=== PATIENT | female | born 1960 | race Caucasian/White ===

== ENCOUNTER 2016-10-15 12:01 | Emergency (ER) | payer MEDICAID ==
[~2016-10-15] VITALS: Ht 165.1 cm; Wt 80.7 kg
[~2016-10-15 12:01] MED LIST: ACETAMINOPHEN500 M3 PO; ALBUTEROL2 PUFFS/17 IN; ASPIRIN 81MG TA81 MG PO; ATORVASTATIN 8080 MG PO; ELAVIL GENERIC25 MG PO; FLEXERIL10 MG PO; FLONASE 50 MCG16 GM; FUROSEMIDE80 MG PO; GABAPENTIN300 MG PO; KLOR-CON M2020 MEQ PO; LEVOTHYROXINE0.05 MG PO; MAXZIDE 25 MG-31 TA1 PO; MEDROL 4MG. DOSE4 MG PO; METFORMIN HCL1000 MG PO; METOPROLOL25 MG PO; MONODOX100 MG PO; NEXIUM40 MG PO; OMEPRAZOLE40 MG PO; OXYCODONE CR10 MG PO; OXYGEN IH; Oxycodone5 MG PO; PAMELOR25 MG PO; SYMBICORT1 AER IH; VENTOLIN H0.09 MG/AC IH; VERAPAMIL120 MG PO; XANAX1 MG PO; ZANTAC 150150 MG PO; [UNRECOGNIZED DRUG - OTHER] PO
[2016-10-15 12:10] LABS: HEMOGLOBIN 11.8 g/dL (12.2-16.2); LYMPH # 3.4 K/mm3 (0.7-4.5); LYMPH % 29.1 % (10-50.0)
[2016-10-15 12:24] LABS: URINE BILIRUBIN - DIPSTICK NEGATIVE (NEG); URINE BLOOD NEGATIVE (NEG)
--- NOTE | 2016-10-15 12:29 | Emergency Room Report ---
History of Present Illness Time Seen by [id number] Presenting Problem in Triage Pt arrived:Stretcher Presenting Problem:RAPID RESPONSE WAS CALLED TO MRI, PER STAFF REPORT PT HAD JUST COMPLETED MRI BRAIN WITH CONTRAST THAT WAS ORDERED PER PT PCP. PER REPORT PT IV HAD BEEN REMOVED PT SAT UP ON SIDE OF MRI TABLE, PT REPORTED FEELING VERY DIZZY, PT WAS LAID BACK DOWN PER STAFF, STAFF REPORTS PT BECAME UNRESPONSIVE AT THAT TIME. PT IS AWAKE AND AROUNSABLE BUT LETHARGIC IN NATURE AT THIS TIME. PT REPORTS THAT PT WAS RECIEVING MRI TODAY R/T RECENT HX OF FALLS AND PT BEING TIRED AND FALLING ASLEEP WHILE TALKING PER REPORT. Onset of symptoms date/time:10/15/16 or onset unknown for: Treatment Prior to Arrival: SENIOR ADMINISTRATIVE SUPPORT Provided by: Sepsis Risk Assessment: Temp: B/P: 97/52 MAP: 67 Pulse: 68 Resp: 20 Recent fever? N Clinical Suspician of Infection? N Mental Status: 2 - Mildly Altered Sepsis Risk:Low Sepsis Risk Have you (or family members/close friends) recently traveled outside the [place]? N If Yes, where/when: Have you had exposure to infectious disease within the past month? N TB? Other? Specify: Patient was in MRI and a history of passing out and falls and hitting the head and face several days ago per the and was getting an MRI of the brain for evaluation of that and finished the MRI with contrast and then sat up and complained of lightheadedness and passed out and was not responsive upon arrival to the emergency room they stated they were having trouble getting a blood pressure initially and her initial blood pressure was 97 the patient was arousable C denied any pain denied headache chest pain or abdominal pain since she had lightheadedness and weakness and denied other complaints she states she has had low back pain but that has been a chronic complaint per the patient as well as her . There were no falls in the MRI the last fall was several days ago per the Comment 108pm sbp 115, pt complains only of chronic back pain, same as she usually has 1257 bp to 87, 2nd liter bolus has been ordered, levaquin iv added. 402pm this got off the phone with Dr. Rosario he states he MRI of the head has no acute disease the CT abdomen has no acute disease and he states the CT C- spine no acute fracture noted injury. He states the chest x-ray looks like a LEFT lower lobe pneumonia and that there was some edema present. I discussed with the he states the patient has been coughing up some yellow phlegm he recently. She has some acute kidney injury renal insufficiency with some interstitial edema as well as pneumonia we don't have renal here in staff tells me when E to transfer the patient, [facility] pt is sitting up in bed drinking. preeti Stahl MD he accepts [facility] telemetry. preeti him initial a fib appearance, then nsr, now looks like junctional. Electrocardiogram read by myself shows a rate of 61, junctional rhythm, normal axis, no QT prolongation, nonspecific electrocardiogram ALLERGIES Coded Allergies: Penicillins (I-HIVES 10/05/16) bupropion (UNKNOWN 10/05/16) fexofenadine (From TAD) (UNKNOWN 10/05/16) ibuprofen (From ADVIL) (I-HIVES 10/05/16) naproxen (From ALEVE) (UNKNOWN 10/05/16) valsartan (From DIOVAN) (UNKNOWN 10/05/16) varenicline (From CHANTIX) (UNKNOWN 10/05/16) Home Medications Reported Medications Alprazolam (Xanax) 1 MG PO TID Verapamil Hcl (Verapamil ER) 120 MG PO BID Metoprolol Tartrate (Metoprolol) 25 MG PO BID Potassium Chloride (Klor-Con M20) 20 MEQ PO DAILY Citalopram Hydrobromide (Citalopram HBr) 20 MG PO DAILY #30 Cyclobenzaprine Hcl (Flexeril) 5 MG PO BID Acetaminophen (Acetaminophen Extra Strength) 650 MG PO PRN PRN PAIN OXYCODONE HCL (Oxycodone) 15 MG PO Q6H ALBUTEROL (Ventolin Hfa) 2 PUFF IH Q6HP PRN SHORTNESS OF BREATH METFORMIN HCL (Metformin 1000MG) 1,000 MG PO BID Omeprazole (Omeprazole 40MG) 40 MG PO DAILY Atorvastatin Calcium (Atorvastatin 80MG) 80 MG PO QHS Levothyroxine Sodium (Levothyroxine) 0.05 MG PO DAILY Fluticasone Propionate (Flonase 50 Mcg Nasal [place]) 2 SPRAY NA DAILY Gabapentin (Gabapentin 300MG) 300 MG PO QHS ASPIRIN (Aspirin) 81 MG PO DAILY Device (Oxygen (Concentrator)) 1 LITER IH CONSTANT #3 History Medical History General CAD? No Angina: Yes IA: No Hypertension? Yes Hyperlipidemia? Yes CHF? No DVT? No PE? No COPD? Yes Asthma? Yes Anemia? No GERD? Yes Gastric ulcers? No GI Bleed? No Hernia? Yes Thyroid Problems? Yes Hypothyroidism? Yes CVA? No Seizures? No Diabetes? Yes Insulin Dependent: No Insulin Pump: No Home FSBS? Yes Renal Insuffiency? No End Stage Renal Disease? No UTI? No Stones? No BPH? No GB Disease: Yes Nephritic Syndrome? No Asplenia? No Hepatitis? No Sickle Cell Disease? No Arthritis? Yes Migraines? No Cataracts? No Glaucoma? No MRSA? No HIV? No TB? No Anxiety? Yes Depression? No Cancer? No More? 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 Hx LMP N/A Family History Family Hx Diabetes Yes CAD Yes Hypertension No Hyperlipidemia No Cancer Yes TB No Social History Smoking Hx Smoker: Current Every Day Smoker Tobacco: Yes Type Cigarettes Packs/day < 1 Pack Alcohol Alcohol: No Review of Systems All Other Systems Reviewed and Negative Physical Exam Vital Signs Vital Signs Date Time Temp Pulse Resp B/P Pulse O2 O2 Flow FiO2 Ox Delivery Rate 10/15 1729 98.1 60 18 92/53 95 3 10/15 1710 60 18 92/53 91 3 10/15 1606 61 16 120/80 91 3 10/15 1524 57 16 107/59 87 3 10/15 1356 61 20 98/63 95 3 10/15 1330 61 20 93/52 97 3 10/15 1308 63 20 115/62 97 3 10/15 1243 68 20 94/65 95 3 10/15 1201 99.0 68 20 97/52 92 3 General Appearance: Nontoxic fatigued Head: Normocephalic, has some bilateral facial contusion Eyes: conjunctiva/corneas clear ENT: Mucous membranes moist. Neck: No jugular venous distention. C-spine she states she has some C-spine tenderness Cardiac: regular rate and rhythm Lungs: Clear to auscultation bilaterally Abdomen: Epigastric tenderness, Nondistended, positive bowel sounds, no rebound : No CVA tenderness Extremities: no edema Musculoskeletal: No chest wall tenderness Skin: No rashes or lesions to exposed skin. Neurologic: Alert and oriented x2 "2016" Cranial nerves intact Strength 4 out of 5 equal symmetric in arms and legs no focal deficits in strength, Sensation intact to light touch Psychiatric: Normal affect (Blank SMITH, Konstantin) General Appearance normal appearance Respiratory Status No: respiratory distress. Cardiovascular no JVD Neurologic alert Medical Decision Making LABS/Meds/Orders Pt receiving controlled substance in ED? No Comment 335pm awaiting MRI head read. awaiting CT reads Results/Orders Laboratory Tests 10/15/16 1708: POC Glucose 128 H 10/15/16 1700: Lactic Acid 8.6 H 10/15/16 1340: ABG pH 7.17 *L, ABG pCO2 (Temp Corrct 30.5 L, ABG pO2 (Temp Correct 50.4 L, ABG HCO3 10.8 L, ABG Total CO2 11.7 L, ABG O2 Sat (Calculated) 75.0 *L, ABG Base Excess -17.8 L, Jorge Test ACCEPTABLE, Blood Gas Comments LEFT RADIAL 10/15/16 1245: Lactic Acid 6.8 H 10/15/16 1215: Urine Color YELLOW, Urine Appearance CLEAR, Urine pH 6.0, Ur Specific [place] >= 1.030, Urine Protein 2+ H, Urine Ketones NEGATIVE, Urine Blood NEGATIVE, Urine Nitrate NEGATIVE, Urine Bilirubin NEGATIVE, Urine Urobilinogen 0.2, Ur Leukocyte Esterase NEGATIVE, Urine WBC OCC, Urine Renal Cells 3-5, Urine Bacteria 4+, Urine Mucus OCC, Urine Glucose NEGATIVE 10/15/16 1205: Lipase 105 10/15/16 1205: B-Natriuretic Peptide 1190 H 10/15/16 1205: Sodium 139, Potassium 5.8 H, Chloride 107, Carbon Dioxide 16 L, BUN 14, Creatinine 1.5 H, Estimated Creat Clear 54, Estimated GFR (MDRD) 36 L, Glucose 137 H, Calcium 7.8 L, Total Bilirubin 0.6, AST 60 H, ALT 65, Alkaline Phosphatase 107, Creatine Kinase 54, CK-MB (CK-2) Rel Index 4.4 H, CK and CKMB Interp 2.4, Troponin I 0.06, Total Protein 6.2 L, Albumin 2.8 L, Globulin 3.4 H, Albumin/Globulin Ratio 0.8 L, PT 14.5 H, INR 1.36 H, APTT 31.1, WBC 11.7 H, RBC 4.72, Hgb 11.8 L, Hct 43.3, MCV 91.7, RDW 17.0, Plt Count 336, MPV 7.1 L, Gran % 65.9, Gran # 7.7, Lymphocytes % 29.1, Monocytes % 3.3, Eosinophils % 1.0, Basophils % 0.7, Lymphocytes # 3.4, Monocytes # 0.4, Eosinophils # 0.1, Basophils # 0.1, PUBS MCHC 27.3 L, MCH 25.0 L Orders Procedure Date/time Status DIET-NOTHING BY MOUTH 10/15 D Active FINGERSTICK BLOOD SUGAR 10/15 1708 Complete [id number] BY SAME 10/15 1620 Active ELECTROCARDIOGRAM REQUEST 10/15 1615 Active ARTERIAL BLOOD GAS REQUEST 10/15 1540 Active [id number] BY SAME 10/15 1400 Active BRAIN NATRIURETIC PEPTIDE 10/15 1353 Complete LACTIC ACID FOLLOW UP 10/15 1321 Complete ELECTROCARDIOGRAM REQUEST 10/[address] SCAN REQUEST 10/15 1234 Complete ARTERIAL BLOOD GAS REQUEST 10/15 1230 Active LIPASE 10/15 1229 Complete LACTIC ACID 10/15 1229 Complete URINARY CATHETER INSERT 10/15 1226 Active PARTIAL THROMBOPLASTIN TIME 10/15 1223 Complete PROTHROMBIN TIME 10/[address] ABD REQUEST 10/[address] SCAN REQUEST 10/15 1222 Complete CULTURE, BLOOD 10/15 1222 Complete URINALYSIS/COMPLETE 10/15 1217 Complete 12 LEAD EKG-BESSON (INITIAL) 10/15 1215 Active CULTURE, URINE 10/15 1215 Complete ELECTROCARDIOGRAM REQUEST 10/15 1202 Active IV SALINE LOCK 10/15 1202 Active PACKAGING TECHNICIAN 10/15 1202 Active CBC WITH AUTO DIFF 10/15 1202 Complete CARDIAC ENZYMES 10/15 1202 Complete CHEM 12 PROFILE 10/15 1202 Complete Electrocardiogram read by myself shows a rate of 71, a fib rhythm, normal axis, no QT prolongation, nonspecific electrocardiogram (Blank SMITH, Konstantin) XRAY/CT/US XRAY/CT/US XRAY chest XR interpretation by reviewed by me Xray Results lll infiltrate Departure Departure Time of Disposition 1604 Disposition DC/XFER from [facility] to [facility] Clinical Impression Primary Impression: Pneumonia Qualifiers: Pneumonia type: due to unspecified organism Laterality: left Lung location: lower lobe of lung Qualified Code: J18.9 - Pneumonia, unspecified organism Secondary Impressions: WENDIE (acute kidney injury) Hyperkalemia Hypotension Qualifiers: Hypotension type: unspecified hypotension type Qualified Code: I95.9 - Hypotension, unspecified Condition STABLE Referrals Zeeshan Alfonso MD (Family) ED Critical Care Critical Care Yes Time spent 75-104 min Vital system(s) involved: Circulatory Failure, Central Nervous System, Renal Failure I was present at bedside for Coordinating pt's care, Interpreting EKGs/Strips , During my initial exam, Reviewing lab results, Reviewing old records, Discussing pt condition, For re-examinations, Examining radiographs If Critical Care minutes are documented, the time involved in the performance of seperately reportable procedures was not counted toward critical care time documented. I directly delivered medical care to this critically ill and/or injured patient. Timely evaluation and treatment was necessary to address the significant organ system(s) dysfunction present in this patient. Electrocardiogram read by myself shows a rate of 71, a fib rhythm, normal axis, no QT prolongation, nonspecific electrocardiogram (Konstantin Parson MD) XRAY/CT/US XRAY/CT/US XRAY chest XR interpretation by reviewed by me Xray Results lll infiltrate Departure Departure Time of Disposition 1604 Disposition DC/XFER from ER to [facility] Clinical Impression Primary Impression: Pneumonia Qualifiers: Pneumonia type: due to unspecified organism Laterality: left Lung location: lower lobe of lung Qualified Code: J18.9 - Pneumonia, unspecified organism Secondary Impressions: WENDIE (acute kidney injury) Hyperkalemia Hypotension Qualifiers: Hypotension type: unspecified hypotension type Qualified Code: I95.9 - Hypotension, unspecified Condition STABLE Referrals Zeeshan Alfonso MD (Family) ED Critical Care Critical Care Yes Time spent 75-104 min Vital system(s) involved: Circulatory Failure, Central Nervous System, Renal Failure I was present at bedside for Coordinating pt's care, Interpreting EKGs/Strips , During my initial exam, Reviewing lab results, Reviewing old records, Discussing pt condition, For re-examinations, Examining radiographs If Critical Care minutes are documented, the time involved in the performance of seperately reportable procedures was not counted toward critical care time documented. I directly delivered medical care to this critically ill and/or injured patient. Timely evaluation and treatment was necessary to address the significant organ system(s) dysfunction present in this patient.
[2016-10-15] MEDS ORDERED: CITALOPRAM HYDR20 MG PO (12:40)
[2016-10-15 13:59] LABS: ALLEN'S TEST ACCEPTABLE; ARTERIAL ABE -17.8 MMOL/L (-2.4-+2.3); ARTERIAL PO2 50.4 MMHG (80-100); ARTERIAL TCO2 11.7 MMOL/L (23-27); OXYGEN 5 LPM NC
--- NOTE | 2016-10-15 15:41 | RADIOLOGY REPORT PS360 ---
CHEST-PORTABLE ORDERING PHYSICIAN : Konstantin Parson MD PATIENT AGE: 55 years GENDER: Female INDICATION: syncope TECHNIQUE: AP portable upright chest CT chest COMPARISON: 11/25/2015 FINDINGS AP portable upright chest. The patient has abundant chronic changes as seen on previous November 2015 CT chest & plain film chest October 2016. . Less optimal inspiration today accentuates markings. Particularly towards bases. However today there is is a left lower lobe infiltrate superimposed upon chronic changes. Air bronchograms most evident towards left lung base. Partially obscure the left heart border but not the left hemidiaphragm. Mild cardiomegaly. Generous with superior mediastinum, with probably progression of right paratracheal lymph nodes further supported by today CT neck which includes the upper most chest and shows a additional prominence of right paratracheal lymph node As evident on today's chest film IMPRESSION: ------- Left Lower lobe pneumonia -superimposed on chronic changes . Prominent chronic changes Suboptimal inspiration further accentuates lung markings at bases is well Coronary megaly. Additional fullness right paratracheal region suspect for progressive right paratracheal adenopathy-as further confirm a subsequent CT C-spine from today
--- NOTE | 2016-10-15 16:20 | RADIOLOGY REPORT PS360 ---
CT SINUS (MAX-FACIAL W/O CONT) ORDERING PHYSICIAN : Konstantin Parson MD PATIENT AGE: 55 years GENDER: Female INDICATION: FALL, FACIAL CONTUSION TECHNIQUE: Helical CT scanning performed the facial bones and sinuses with multiplanar reconstructions on CT workstation. COMPARISON: CT head 10/05/2016 previous MR I C-spine 06/25/2016 FINDINGS No acute fracture involving the facial bones. The orbits intact. Paranasal sinuses are well-developed and clear. The ostiomeatal complex and pathway is patent bilaterally. The frontal sinus, ethmoid air cells, sphenoid sinus clear. Fluid is seen at the left middle air a suggestion otitis media. Opacification left mastoid air cells may reflect mastoiditis or left mastoid effusion. ENT evaluation warranted. Dental fillings do yield streak artifact. Enlarged sella turcica again noted . Large empty sella measuring 17.5 mm AP but this is seen on 2016 MRI C-spine as well and similar size this is further discussed on the MRI brain report . IMPRESSION: --------- Paranasal sinuses well-developed and clear. No facial bone fracture or acute findings. No sinusitis. Left otitis media noted with opacified left mastoid air cells. May benefit from subsequent ENT follow-up at some point Enlarged sella turcica most likely compatible with benign empty sella syndrome
--- NOTE | 2016-10-15 16:32 | RADIOLOGY REPORT PS360 ---
CT CERVICAL SPINE W/O CONT ORDERING PHYSICIAN : Konstantin Parson MD PATIENT AGE: 55 years GENDER: Female INDICATION: SYNCOPE-- ABD TENDERNES short of breath. Syncope episode. Somnolence Advanced lung disease TECHNIQUE: Helical CT scanning performed through the cervical spine with sagittal & coronal reconstructions on CT workstation COMPARISON: MRI C-spine 06/2016 FINDINGS No acute fracture or findings at the cervical spine. Normal alignment of cervical vertebral bodies. Facets with normal relationships. Prevertebral soft tissues generous but within normal limits. Scant degenerative changes noted the C-spine. No prominent findings. Right and left TMJ intact. Enlarged sella again noted. Visualized paranasal sinuses clear . Deviation nasal septum with convexity to the right. Fluid at the left middle ear suggesting otitis media on left.. Associated opacification left mastoid air cells which may reflect mastoiditis or mastoid effusion. This study includes uppermost chest which again shows extensive chronic fibrotic lung changes seen on previous CT chest studies. Appears be some mild interstitial edema likely superimposed upon the chronic changes along with may reflect CHF also jugular venous distention is more pronounced today to support such The limited images of the upper chest do show progressive right paratracheal adenopathy in the interval. There is now a large node measuring it appears up to 3 cm x 2 cm at the right paratracheal. At some point a follow-up CT chest recommended to further evaluate this apparent progressive right paratracheal adenopathy. IMPRESSION------ 1.. Cervical spine intact with no acute findings. Vertebral bodies intact. Adequate cervical spinal canal. 2. Otitis media on left. Fluid fills left middle ear. Fluid also seen throughout the left mastoid air cells -reflecting associated left mastoiditis or left mastoid effusion 3. Prominent right paratracheal lymph nodes which are shown progression since previous CT chest November 2015 . Warrants follow-up CT chest when appropriate inpatient stable 4. Enlarged sella turcica again noted 5.. Deviation nasal septum, convexity to the right 6. Extensive fibrotic changes. Chronic lung changes Suspect mild interstitial edema likely reflecting superimposed CHF. Likely Jugular venous distention also noted
--- NOTE | 2016-10-15 16:48 | RADIOLOGY REPORT PS360 ---
CT ABD PELVIS W/O CONTRAST ORDERING PHYSICIAN : Konstantin Parson MD PATIENT AGE: 55 years GENDER: Female INDICATION: SYNCOPE-- ABD TENDERNESS hypoxia. Short of breath Recent fall with facial contusion. Fall. Sleeping/somnolence and Syncope episodes TECHNIQUE: Helical CT scanning performed through the abdomen and pelvis with no oral nor IV contrast. COMPARISON: CT chest 11/25/2015 FINDINGS Extensive chronic fibrotic interstitial fibrotic changes including underlying honeycombing at the periphery lung bases with I believe superimposed hazy groundglass and interstitial infiltrates-. Likely reflection of CHF. Question as well as towards posterior sulcus. Will require follow-up chest films. & Suspect additional minimal infiltrate at left base and lingula. Cardiomegaly. No pericardial effusion. Partially imaged Enlarged pulmonary arteries may reflect pulmonary hypertension. Abdomen. Lack of oral and IV contrast decreases sensitivity. Fluid-filled moderately distended stomach. Small bowel no dilatation nor obstruction. Unremarkable small bowel. Large bowel. Generous liquid stool air-fluid levels right colon. Cannot exclude developing diarrhea but no liquid stool at left colon. Fairly empty left colon. No appendix visualized but I see no evidence of appendicitis. Pelvis. Hysterectomy. Mcgarry catheter in place at and accounts for air within the urinary bladder. Noncontrast images of liver, spleen, adrenals, kidneys unremarkable. No urinary Tract obstruction or calculi. Pancreas. Normal contour no masses no pancreatic ductal dilatation. Question Slight hazy appearance doubt but cannot be pancreatitis pancreatitis unlikely. IT lipase normal. Pain device is seen overlying the right buttock The vertebral bodies are intact with no osseous lesions. Mild degenerative changes lower L-spine. IMPRESSION 1. Severe fibrotic changes at lung bases.. Additional Interstitial edema today likely reflecting mild CHF,. Question/suggestion additional minimal infiltrate left infrahilar region towards lingula; as well as posterior sulcus regions bilaterally . Prominent pulmonary arteries may reflect underlying pulmonary hypertension. Follow-up CT chest once patient stabilized suggested 2. No discrete acute findings in the abdomen. 3. Additional Minor observations: - Slight hazy appearance below the pancreas may reflect some subtle generalized edema. Nonspecific warrants correlation with amylase, lipase. - Fluid-filled distended stomach. -Generous liquid stool right colon nonspecific but reflect developing diarrhea.
[2016-10-15 17:29] VITALS: BP 92/53
== END 2016-10-15 17:29 | disposition short-term general hospital (02) ==
LOC: ER 12:01
PROVIDERS: Emergency Medicine
DX: J18.9 Pneumonia, unspecified organism (principal); I95.9 Hypotension, unspecified; Z72.0 Tobacco use